=== PATIENT | female | born 1970 | race Caucasian/White ===

== ENCOUNTER → 2016-05-09 | Outpatient (CLI) | payer OTHER | LOC: BMCIMAGING 09:09 | PROVIDERS: ATTEND Family Medicine | DX: E07.89 Other specified disorders of thyroid (principal) | CPT/HCPCS: 76536-PO ==

== ENCOUNTER → 2016-05-16 | Outpatient (CLI) | payer OTHER | LOC: BMCIMAGING 08:42 | PROVIDERS: ATTEND Family Medicine | DX: R94.5 Abnormal results of liver function studies (principal) ==

== ENCOUNTER → 2017-09-25 | Outpatient (CLI) | payer OTHER | LOC: FIMAGING 08:40 | PROVIDERS: ATTEND Family Medicine | DX: Z12.31 Encounter for screening mammogram for malignant neoplasm of breast (principal); R92.2 Inconclusive mammogram ==

== ENCOUNTER → 2017-09-25 | Outpatient (CLI) | payer OTHER | LOC: FIMAGING 08:40 | PROVIDERS: ATTEND Family Medicine | DX: Z12.31 Encounter for screening mammogram for malignant neoplasm of breast (principal); Z13.6 Encounter for screening for cardiovascular disorders; Z82.49 Family history of ischemic heart disease and other diseases of the circulatory system ==

== ENCOUNTER → 2017-11-13 | Outpatient (CLI) | payer OTHER | LOC: FIMAGING 09:02 | PROVIDERS: ATTEND Family Medicine | DX: R92.8 Other abnormal and inconclusive findings on diagnostic imaging of breast (principal) ==

== ENCOUNTER → 2018-05-15 | Outpatient (CLI) | payer OTHER | LOC: FIMAGING 11:41 | PROVIDERS: ATTEND Family Medicine | DX: R92.8 Other abnormal and inconclusive findings on diagnostic imaging of breast (principal) ==